=== PATIENT | male | born 1990 | race Caucasian/White ===

== ENCOUNTER 2024-04-28 06:51 | Inpatient (IN) | payer SELFPAY ==
[~2024-04-28] VITALS: Ht 175.3 cm; Wt 826.9 kg
[2024-04-28 06:57] VITALS: O2SAT 99
[2024-04-28] MEDS: LEVETIRACETAM 500MG PREMIX 100 ML IV ONE ×2 (07:30)
[2024-04-28] MEDS: LACTATED RINGERS 1,000 ML IV SCH (08:29)
[2024-04-28 08:41] LABS: HEMATOCRIT. 42.8 % (42.0-52.0); HEMOGLOBIN. 14.4 g/dL (14.0-18.0); MEAN CORPUSCULAR HEMOGLOBIN 30.7 pg (28.0-32.0); MEAN CORPUSCULAR HGB CONC 33.6 g/dL (31.0-37.0); MEAN CORPUSCULAR VOLUME 91.4 fL (80.0-94.0); MEAN PLATELET VOLUME 7.7 fl (7.4-10.4); PLATELET 274 x1000/uL (130-400); RED BLOOD CELL COUNT 4.68 mill/uL (4.7-6.1); RED CELL DISTRIBUTION WIDTH 13.3 % (11.6-14.6)
[2024-04-28 08:49] LABS: CARBON DIOXIDE 25 mEq/L (21-32); CHLORIDE 103 mEq/L (98-107); POTASSIUM 3.7 mEq/L (3.5-5.1); SODIUM 137 mEq/L (136-145)
[2024-04-28 08:50] LABS: CALCIUM 9.3 mg/dL (8.7-10.4)
[2024-04-28 08:51] LABS: DIFFERENTIAL COMMENT 1
[2024-04-28 08:54] LABS: GLUCOSE 109 mg/dL (70-105)
[2024-04-28 08:55] LABS: UREA NITROGEN BLOOD 9 mg/dL (9-23)
[2024-04-28 08:56] LABS: ALANINE AMINOTRANSFERASE 70 IU/L (10-49); ALBUMIN 4.7 g/dL (3.2-4.8); ASPARTATE AMINOTRANSFERASE 58 IU/L (<34)
[2024-04-28 08:57] LABS: BILIRUBIN TOTAL 0.8 mg/dL (0.1-1.0); PROTEIN TOTAL 7.9 g/dL (6.0-8.3)
[2024-04-28] MEDS ORDERED: ONDANSETRON HCL 4MG/2ML INJ IV PRN (09:45)
[2024-04-28] MEDS ORDERED: CLONIDINE 0.1MG TABLET PO PRN (09:45)
[2024-04-28] MEDS ORDERED: ACETAMINOPHEN 650MG/20.3ML UDC GT PRN ×2 (09:45)
[2024-04-28] MEDS ORDERED: GUAIFENESIN 200MG/10ML SUGAR FREE UDC PO PRN (09:45)
[2024-04-28] MEDS ORDERED: DOCUSATE SODIUM 100MG CAPSULE PO PRN (09:45)
[2024-04-28 10:45] LABS: LACTIC ACID 2.1 mmol/L (0.4-2.0)
[2024-04-28] MEDS: THIAMINE HCL 100MG TABLET PO SCH (11:32)
[2024-04-28] MEDS: MVI, ADULT NO.1 10 ML, FOLIC ACID 1 MG, THIAMINE HCL 100 MG in SODIUM CHLORIDE 0.9% 1,0... IV SCH (11:32)
[2024-04-28] MEDS: FOLIC ACID 1MG TABLET PO SCH (11:32)
[2024-04-28] MEDS: AMLODIPINE 5MG TABLET PO SCH (11:32)
[2024-04-28 11:43] LABS: PLATELET ESTIMATE NORMAL
[2024-04-28] MEDS ORDERED: LORAZEPAM 2MG/ML INJ IV PRN (18:45)
[2024-04-28 20:00] VITALS: BP 137/81; PULSE 70; RESP 18; TEMP 37; O2SAT 99
[2024-04-28 22:00] VITALS: BP 137/81; PULSE 70; RESP 18; TEMP 36.7
[2024-04-28 22:15] LABS: CREATINE KINASE 266 IU/L (46-171)
[2024-04-28 22:23] LABS: TROPONIN I HIGH SENSITIVITY < 4 ng/L (3.0-53)
[2024-04-29] VITALS: BP 135/80; PULSE 82; RESP 18; TEMP 36.7; O2SAT 98
[2024-04-29 01:30] LABS: CLARITY URINE CLEAR (CLEAR); COLOR URINE YELLOW (YELLOW); GLUCOSE URINE NEGATIVE (NEGATIVE); KETONES URINE NEGATIVE (NEGATIVE); LEUKOCYTE ESTERASE URINE NEGATIVE (NEGATIVE); NITRITE URINE NEGATIVE (NEGATIVE); OCCULT BLOOD URINE NEGATIVE (NEGATIVE); PROTEIN URINE NEGATIVE (NEGATIVE); SPECIFIC GRAVITY URINE 1.014 (1.005-1.030)
[2024-04-29 01:40] LABS: *AMPHETAMINES SCREEN URINE NEGATIVE (NEGATIVE); *BARBITURATES SCREEN URINE NEGATIVE (NEGATIVE); *BENZODIAZEPINES SCREEN URINE NEGATIVE (NEGATIVE); *COCAINE SCREEN URINE PRESUMPTIVE POSITIVE (NEGATIVE)
[2024-04-29 01:41] LABS: CANNABINOID URINE SCREEN NEGATIVE (NEGATIVE); ECSTASY MDMA SCREEN URINE NEGATIVE (NEGATIVE); METHADONE URINE SCREEN NEGATIVE (NEGATIVE); OPIATES URINE SCREEN NEGATIVE (NEGATIVE); PHENCYCLIDINE URINE SCREEN NEGATIVE (NEGATIVE)
[2024-04-29 02:12] LABS: SQUAMOUS EPITHELIAL CELL URINE NONE SEEN /lpf (RARE/1+)
[2024-04-29 02:13] LABS: BACTERIA URINE TRACE; RBC URINE 0-2 /hpf (0-2); WBC URINE NONE SEEN /hpf (0-2)
[2024-04-29 04:00] VITALS: BP 109/77; PULSE 55; RESP 20; TEMP 37.1; O2SAT 98
[2024-04-29 06:46] LABS: BASOPHILS % 0.4 % (0.0-2.0); EOSINOPHILS % 6.2 % (0.0-5.0); HEMATOCRIT. 40.1 % (42.0-52.0); HEMOGLOBIN. 13.9 g/dL (14.0-18.0); LYMPHOCYTES % 31.9 % (20.0-50.0); MEAN CORPUSCULAR HEMOGLOBIN 32.5 pg (28.0-32.0); MEAN CORPUSCULAR HGB CONC 34.6 g/dL (31.0-37.0); MEAN CORPUSCULAR VOLUME 93.9 fL (80.0-94.0); MEAN PLATELET VOLUME 7.9 fl (7.4-10.4); NEUTROPHILS % 51.5 % (40.0-76.0); PLATELET 265 x1000/uL (130-400); RED BLOOD CELL COUNT 4.27 mill/uL (4.7-6.1); RED CELL DISTRIBUTION WIDTH 13.2 % (11.6-14.6); WHITE BLOOD COUNT 7.1 x1000/uL (4.5-11.0)
[2024-04-29 06:52] LABS: T4 FREE 1.49 ng/dL (0.89-1.76); THYROID STIMULATING HORMONE 2.88 uIU/mL (0.55-4.78)
[2024-04-29 07:01] LABS: CHLORIDE 106 mEq/L (98-107); POTASSIUM 3.7 mEq/L (3.5-5.1); SODIUM 142 mEq/L (136-145); TROPONIN I HIGH SENSITIVITY < 4 ng/L (3.0-53)
[2024-04-29 07:02] LABS: CALCIUM 9.3 mg/dL (8.7-10.4); CARBON DIOXIDE 25 mEq/L (21-32)
[2024-04-29 07:07] LABS: CREATININE 0.9 mg/dL (0.6-1.3); GLUCOSE 91 mg/dL (70-105); TRIGLYCERIDE 100 mg/dL (0-150); UREA NITROGEN BLOOD 10 mg/dL (9-23)
[2024-04-29 07:08] LABS: CREATINE KINASE 198 IU/L (46-171); LDL CHOLESTEROL 110 mg/dL (5-100)
[2024-04-29 07:09] LABS: CHOLESTEROL 169 mg/dL (<200); HDL CHOLESTEROL 44 mg/dL (>55)
[2024-04-29 08:00] VITALS: BP 118/74; PULSE 63; RESP 20; TEMP 36.8; O2SAT 98
[2024-04-29 12:00] VITALS: BP 123/75; PULSE 66; RESP 20; TEMP 36.7; O2SAT 100
[2024-04-29 16:00] VITALS: BP 101/51; PULSE 69; RESP 20; TEMP 36.7; O2SAT 100
== END 2024-04-29 19:03 | disposition left against medical advice (07) | DRG 53 ==
LOC: ER 06:51 → 8WST 08:18
PROVIDERS: ADMIT Hospitalist; ATTEND Hospitalist
DX: G40.909 Epilepsy, unspecified, not intractable, without status epilepticus (principal); F10.10 Alcohol abuse, uncomplicated; I10 Essential (primary) hypertension; R74.01 Elevation of levels of liver transaminase levels; F14.90 Cocaine use, unspecified, uncomplicated; Z53.29 Procedure and treatment not carried out because of patient's decision for other reasons; F17.210 Nicotine dependence, cigarettes, uncomplicated; R73.9 Hyperglycemia, unspecified; F19.10 Other psychoactive substance abuse, uncomplicated; Y90.0 Blood alcohol level of less than 20 mg/100 ml; Z79.899 Other long term (current) drug therapy
CPT/HCPCS: 36415; 80048; 80053; 80061; 80305; 80320; 81003; 82550; 83036; 83605; 84439; 84443; 84481; 84484; 85025; 93005; 93970; 99291; J1953; J3411; J3490; J7030; G0480